=== PATIENT | female | born 1970 | race Caucasian/White ===

== ENCOUNTER 2018-08-21 11:07 | Emergency (ER) | payer MEDICAID ==
[~2018-08-21] VITALS: Ht 160 cm; Wt 54.5 kg
[2018-08-21 11:13] VITALS: Ht 160 cm; Wt 54.5 kg
[2018-08-21] MEDS ORDERED: OXYCONTIN10 MG (11:14)
[2018-08-21] MEDS ORDERED: GABAPENTIN100 MG (11:14)
[2018-08-21] MEDS ORDERED: PERCOCET 10-321 EAC1 PO (13:02)
[2018-08-21 13:24] VITALS: BP 115/68
== END 2018-08-21 13:25 | disposition home or self-care (01) ==
LOC: D.ER 11:07
DX: S92.101A Unspecified fracture of right talus, initial encounter for closed fracture (principal)

== ENCOUNTER → 2018-08-23 15:26 | Outpatient (CLI) | payer MEDICAID ==
[2018-08-21 11:13] VITALS: BMI 21.3
[~2018-08-23 15:26] MED LIST: GABAPENTIN100 MG; OXYCONTIN10 MG; PERCOCET 10-321 EAC1 PO
[2018-08-29 17:07] LABS: AEROBE ID Final report (())
== END | disposition home or self-care (01) ==
LOC: D.LABREF 15:26
PROVIDERS: ATTEND Orthopaedic Surgery
DX: M25.571 Pain in right ankle and joints of right foot (principal); S91.001A Unspecified open wound, right ankle, initial encounter

== ENCOUNTER 2018-09-03 00:59 | Emergency (ER) | payer MEDICAID ==
[~2018-09-03] VITALS: Ht 160 cm; Wt 68.2 kg
[~2018-09-03 00:59] MED LIST changes: -GABAPENTIN100 MG; +NEURONTIN600 MG PO
[2018-09-03 01:09] VITALS: BP 110/75; Ht 160 cm; Wt 68.2 kg
[2018-09-03] MEDS ORDERED: CILOXAN5 ML RIGHT EYE (02:13)
== END 2018-09-03 02:31 | disposition home or self-care (01) ==
LOC: D.ER 00:59
DX: H10.32 Unspecified acute conjunctivitis, left eye (principal)

== ENCOUNTER 2018-09-08 05:43 | Day surgery (SDC) | payer MEDICAID ==
[~2018-09-08] VITALS: Ht 160 cm; Wt 63.5 kg
[~2018-09-08 05:43] MED LIST changes: +CILOXAN5 ML RIGHT EYE
[2018-09-08 05:59] LABS: BASOPHILS 0.2 % (0-2); EOSINOPHILS 2.5 % (0-7); HEMATOCRIT 38.1 % (36.0-48.0); HEMOGLOBIN 12.7 g/dL (12-16); IMMATURE GRANULOCYTES 0.1 % (0-5); LYMPHOCYTES 29.6 % (15-50); MCH 28.1 pg (26.0-34.0); MCHC 33.3 g/dL (31.0-37.0); MCV 84.3 fL (80.0-100.0); MEAN PLATELET VOLUME 10.7 fL (7.4-10.4); MONOCYTES 8.1 % (2-11); NEUTROPHILS 59.5 % (40-80); PLATELET COUNT 276 10x3/uL (130-400); RBC 4.52 10x6/uL (4.00-5.40); RDW 14.2 % (11.5-14.5); WBC 9.6 10x3/uL (4.8-10.8)
[2018-09-08 06:09] LABS: CALC OSMOLALITY 274 mosm/kg (275-300); CARBON DIOXIDE 30.5 mmol/L (21.0-32.0); CHLORIDE - SERUM 101 mmol/L (98-107); CREATININE - SERUM 0.8 mg/dL (0.6-1.3); GLUCOSE 85 mg/dL (74-106); POTASSIUM - SERUM 3.3 mmol/L (3.5-5.1); SODIUM 139 mmol/L (136-145); UREA NITROGEN 8 mg/dL (7-18); eGFR NON AFRICAN AMERICAN 81 mL/min (90-120)
[2018-09-08 06:26] LABS: HCG SERUM NEGATIVE (NEGATIVE)
[2018-09-08 06:47] VITALS: BP 102/66; Ht 160 cm; Wt 63.5 kg
== END 2018-09-08 11:00 | disposition home or self-care (01) ==
LOC: D.OPS 05:43 → D.PAN 07:30 → D.OPS 07:30
PROVIDERS: Anesthesiology; ATTEND Orthopaedic Surgery
DX: S92.101A Unspecified fracture of right talus, initial encounter for closed fracture (principal); M24.071 Loose body in right ankle; Z01.812 Encounter for preprocedural laboratory examination

== ENCOUNTER 2018-09-08 22:57 | Emergency (ER) | payer MEDICAID ==
[~2018-09-08] VITALS: Ht 160 cm; Wt 61.4 kg
[2018-09-08 23:13] VITALS: Ht 160 cm; Wt 61.4 kg
[2018-09-09 03:50] VITALS: BP 122/74
== END 2018-09-09 03:50 | disposition home or self-care (01) ==
LOC: D.ER 22:57
DX: G89.18 Other acute postprocedural pain (principal)

== ENCOUNTER 2019-05-15 08:00 | Outpatient (CLI) | payer SELFPAY ==
[2018-09-08 23:13] VITALS: BMI 23.9
== END 2019-05-15 23:59 | disposition home or self-care (01) ==
LOC: D.MAMMO 08:00
PROVIDERS: ATTEND Nurse Practitioner Family
DX: Z12.31 Encounter for screening mammogram for malignant neoplasm of breast (principal)